=== PATIENT | male | born 1975 | race Caucasian/White ===

== ENCOUNTER 2017-03-25 07:15 | Emergency (ER) | payer OTHER | END 2017-03-25 10:50 | disposition home or self-care (01) | LOC: ER 07:15 | DX: R10.11 Right upper quadrant pain (principal); R10.13 Epigastric pain; R07.9 Chest pain, unspecified; I25.2 Old myocardial infarction; I10 Essential (primary) hypertension; Z79.82 Long term (current) use of aspirin; Z79.899 Other long term (current) drug therapy | CPT/HCPCS: 36415 ==